=== PATIENT | male | born 1955 | race African-American/Black ===

== ENCOUNTER → 2019-01-25 | Outpatient (CLI) | payer MEDICARE ==
--- NOTE | 2019-01-25 17:01 | RAD ---
Exam: Thoracic spine Date: 01/25/2019 11:47 AM CLINICAL HISTORY: Back pain COMPARISON: None available. FINDINGS: AP and lateral/swimmers views of the thoracic spine submitted. There is severe superimposed artifact at the cervical thoracic junction on the lateral view per techniques. Exam shows preserved disc height throughout. Negative degenerative/proliferative changes. Negative compression fracture. Negative malalignment. Negative focal paraspinal line deviation/hematoma. IMPRESSION: 1. Negative acute fracture or subluxation. Electronically signed by: Rl Rios MD (01/25/2019 4:58 PM) [facility]
== END | disposition home or self-care (01) ==
LOC: RAD 11:38
PROVIDERS: ATTEND Nurse Practitioner Family
DX: M54.6 Pain in thoracic spine (principal)
CPT/HCPCS: 72072